=== PATIENT | male | born 1970 | race Native Hawaiian/Other Pacific Islander ===

== ENCOUNTER 2017-06-24 11:52 | Outpatient (CLI) | payer OTHER ==
[~2017-06-24 11:52] MED LIST: LEVAQUIN500 MG OR; LEVO500T PO; MAXALT-MLT10 MG PO; METF500T PO; PRILOSEC20 MG PO; SINGULAIR10 MG PO
== END 2017-06-24 21:48 | disposition home or self-care (01) ==
LOC: RAD 11:52
DX: M54.6 Pain in thoracic spine (principal); S33.5XXA Sprain of ligaments of lumbar spine, initial encounter

== ENCOUNTER 2017-08-12 14:14 | Outpatient (CLI) | payer OTHER | END 2017-08-12 21:26 | disposition home or self-care (01) | LOC: MRI 14:14 | DX: M47.814 Spondylosis without myelopathy or radiculopathy, thoracic region (principal) ==